=== PATIENT | male | born 1985 | race Caucasian/White ===

== ENCOUNTER 2023-07-23 18:25 | Emergency (ER) | payer SELFPAY ==
[~2023-07-23] VITALS: Ht 172.7 cm; Wt 84.8 kg
[2023-07-23 18:33] VITALS: BP 128/84; PULSE 79; RESP 16; TEMP 97.5; O2SAT 98
[2023-07-23 18:38] VITALS: BP 128/84; PULSE 79; RESP 16; TEMP 97.5; O2SAT 98
[2023-07-23] MEDS: IBUPROFEN 600 MG TAB PO ONE (19:00)
[2023-07-23] MEDS: LIDOCAINE MPF 1% 10 MG/ML VIAL INJ STA (19:14)
[2023-07-23] MEDS ORDERED: CEPH-588 PO (19:41)
[2023-07-23] MEDS ORDERED: BACI-418 TP (19:41)
[2023-07-23] MEDS ORDERED: IBUP-2213 PO (19:41)
== END 2023-07-23 19:48 | disposition home or self-care (01) ==
LOC: MED 18:25
DX: S61.211A Laceration without foreign body of left index finger without damage to nail, initial encounter (principal); Z79.899 Other long term (current) drug therapy; W26.8XXA Contact with other sharp object(s), not elsewhere classified, initial encounter; Y93.89 Activity, other specified; Y92.89 Other specified places as the place of occurrence of the external cause; Y99.8 Other external cause status
CPT/HCPCS: 12002; 73140; 90471; 90715; 99283; J2001